=== PATIENT | female | born 1940 | race Caucasian/White ===

== ENCOUNTER → 2019-12-04 14:47 | Outpatient (CLI) | payer MEDICARE, OTHER, SELFPAY ==
--- NOTE | 2019-12-04 | DI.RAD.S_ITS ---
This blank DEXA report has been sent in error by the PACS system. The correct and complete report will be forthcoming in 1-2 days. Thank you for your patience and understanding. COMPARISON: None. Dictated by: Fredy Hodges M.D. on 12/04/2019 at 16:31 Approved by: Fredy Hodges M.D. on 12/04/2019 at 16:31
== END ==
PROVIDERS: Family Provider Physician Assistant; PCP Physician Assistant; Referring Provider Internal Medicine; Visit Provider Internal Medicine
DX: M85.851 Other specified disorders of bone density and structure, right thigh (principal); Z78.0 Asymptomatic menopausal state
CPT/HCPCS: 77080

== ENCOUNTER → 2019-12-08 16:54 | Outpatient (CLI) | payer MEDICARE, OTHER, SELFPAY ==
--- NOTE | 2019-12-08 16:58 | DI.MG.S_ITS ---
BILATERAL DIGITAL SCREENING MAMMOGRAM 3D/2D WITH CAD: 12/08/2019 CLINICAL: Routine screening. Family history of breast cancer. Comparison is made to exams dated: 02/18/2009 mammogram - [facility], 03/02/2003 mammogram, and 11/03/2001 mammogram - [facility]. The tissue of both breasts is predominantly fatty. Current study was also evaluated with a Computer Aided Detection (CAD) system. No significant masses, calcifications, or other findings are seen in either breast. There has been no significant interval change. IMPRESSION: NEGATIVE There is no mammographic evidence of malignancy. A 1 year screening mammogram is recommended. This exam was interpreted at Station ID: [id number]. NOTE: For mammograms, a report in lay terms will be sent to the patient. Approximately 15% of breast malignancies will not be visualized mammographically. In the management of a palpable breast mass, a negative mammogram must not discourage biopsy of a clinically suspicious lesion. Electronically Signed By: Fredy huddleston/smith:12/09/2019 08:20:56 letter sent: Normal Exam ACR BI-RADS Category 1: Negative [id number]
== END ==
PROVIDERS: Family Provider Physician Assistant; Referring Provider Internal Medicine; Visit Provider Internal Medicine
DX: Z12.31 Encounter for screening mammogram for malignant neoplasm of breast (principal); Z80.3 Family history of malignant neoplasm of breast
CPT/HCPCS: 77063; 77067

== ENCOUNTER → 2019-12-08 19:28 | Outpatient (ROUT) | payer MEDICARE, OTHER, SELFPAY ==
[2019-12-08 19:51] LABS: Aspartate Aminotransferase 36 IU/L (14-36); BUN Creatinine Ratio 21.1 (6-22); Blood Urea Nitrogen 15 mg/dL (7-17); Calcium 9.5 mg/dL (8.4-10.2); Carbon Dioxide 24 mmol/L (22-32); Chloride 104 mmol/L (98-107); Cholesterol 147 mg/dL (140-199); Estimated Glomerular Filt Rate > 60.0 mL/min (>60); Glucose 94 mg/dL (80-110); HDL Cholesterol 96 mg/dL (40-60); HEMOLYSIS < 15 (0-50); LDL Cholesterol Calculated 36 mg/dL (<100); Potassium 4.5 mmol/L (3.4-5.1); Sodium 136 mmol/L (137-145); Triglycerides 77 mg/dL (35-150)
[2019-12-08 19:52] LABS: Add Manual Diff / Slide Review NO; Basophils Absolute Auto 0 /uL (0-100); Basophils Percent Auto 0.6 % (0-2); Eosinophils Absolute Auto 100 /uL (0-450); Eosinophils Percent Auto 2.1 % (2-4); Hematocrit 37.2 % (36-46); Hemoglobin 12.5 g/dL (12.0-16.0); Lymphocytes Absolute Auto 1800 /uL (1100-4500); Lymphocytes Percent Auto 35.9 % (25-40); Mean Corpuscular HGB Conc 33.5 % (30-36); Mean Corpuscular Hemoglobin 32.6 PG (26-34); Mean Corpuscular Volume 97.4 fL (80-100); Monocytes Absolute Auto 400 /uL (0-900); Monocytes Percent Auto 8.6 % (3-14); Neutrophils Absolute Auto 2700 /uL (1500-7000); Neutrophils Percent Auto 52.8 % (50-75); Platelet Count 185 X10^3/uL (150-400); Red Blood Cell Count 3.82 X10^6/uL (4.0-5.2); Red Cell Distribution Width 12.7 % (11.6-14.8); White Blood Cell Count 5.1 X10^3/uL (4.5-11.0)
[2019-12-08 20:40] LABS: Vitamin B12 871 pg/mL (239-931)
== END ==
PROVIDERS: Family Provider Physician Assistant; Visit Provider Internal Medicine
DX: E78.2 Mixed hyperlipidemia (principal); E53.8 Deficiency of other specified B group vitamins
CPT/HCPCS: 80048; 80061; 82607; 84450; 85025

== ENCOUNTER → 2020-09-17 15:48 | Outpatient (CLI) | payer MEDICARE, OTHER, SELFPAY ==
--- NOTE | 2020-09-17 | DI.RAD.S_ITS ---
PROCEDURE: XR CHEST 2V INDICATIONS: Chronic Cough TECHNIQUE: 2 views of the chest were acquired. COMPARISON: [facility], , CHEST 2 VIEW, 08/13/2011, 16:52. FINDINGS: Surgical changes and devices: None. Lungs and pleura: No focal consolidation, pneumothorax, or pleural effusion. Mediastinum: Mediastinal contours are normal. Heart size is normal. Bones and chest wall: No suspicious bony abnormalities. Degenerative changes of the shoulders and spine. Stable ossification adjacent to the left shoulder likely represents cycle of remote trauma. There is mild serpentine curvature of the thoracolumbar spine. Soft tissues appear unremarkable. IMPRESSION: No evidence of an acute cardiopulmonary abnormality. Dictated by: Jitendra Norris D.O. on 09/17/2020 at 15:15 Approved by: Jitendra Norris D.O. on 09/17/2020 at 15:18
== END ==
PROVIDERS: Family Provider Physician Assistant; PCP Internal Medicine; Referring Provider Internal Medicine; Visit Provider Internal Medicine
DX: R05 Cough (principal)
CPT/HCPCS: 71046

== ENCOUNTER → 2020-10-14 18:49 | Outpatient (ROUT) | payer MEDICARE, OTHER, SELFPAY ==
[2020-10-14 19:07] LABS: Add Manual Diff / Slide Review NO; Basophils Absolute Auto 0 /uL (0-100); Basophils Percent Auto 0.8 % (0-2); Eosinophils Absolute Auto 0 /uL (0-450); Eosinophils Percent Auto 0.7 % (2-4); Hematocrit 38.4 % (36-46); Hemoglobin 12.8 g/dL (12.0-16.0); Lymphocytes Absolute Auto 2100 /uL (1100-4500); Lymphocytes Percent Auto 35.4 % (25-40); Mean Corpuscular HGB Conc 33.3 % (30-36); Mean Corpuscular Hemoglobin 33.1 PG (26-34); Mean Corpuscular Volume 99.5 fL (80-100); Monocytes Absolute Auto 500 /uL (0-900); Monocytes Percent Auto 8.8 % (3-14); Neutrophils Absolute Auto 3200 /uL (1500-7000); Neutrophils Percent Auto 54.3 % (50-75); Platelet Count 207 X10^3/uL (150-400); Red Blood Cell Count 3.85 X10^6/uL (4.0-5.2); Red Cell Distribution Width 13.1 % (11.6-14.8); White Blood Cell Count 5.8 X10^3/uL (4.5-11.0)
[2020-10-14 19:15] LABS: Aspartate Aminotransferase 34 IU/L (14-36); Blood Urea Nitrogen 16 mg/dL (7-17); Calcium 9.7 mg/dL (8.4-10.2); Carbon Dioxide 26 mmol/L (22-32); Chloride 105 mmol/L (98-107); Cholesterol 218 mg/dL (140-199); Estimated Glomerular Filt Rate > 60.0 mL/min (>60); Glucose 91 mg/dL (80-110); HEMOLYSIS < 15 (0-50); Potassium 4.5 mmol/L (3.4-5.1); Sodium 136 mmol/L (137-145); Triglycerides 97 mg/dL (35-150)
[2020-10-14 19:23] LABS: HDL Cholesterol 110 mg/dL (40-60); LDL Cholesterol Calculated 89 mg/dL (<100)
[2020-10-14 20:10] LABS: Vitamin B12 927 pg/mL (239-931)
== END ==
PROVIDERS: Family Provider Physician Assistant; PCP Internal Medicine; Visit Provider Internal Medicine
DX: E53.8 Deficiency of other specified B group vitamins (principal); M85.80 Other specified disorders of bone density and structure, unspecified site; E78.2 Mixed hyperlipidemia
CPT/HCPCS: 80048; 80061; 82607; 84450; 85025

== ENCOUNTER → 2021-10-12 12:12 | Outpatient (CLI) | payer MEDICARE, OTHER, SELFPAY ==
[2021-10-12 14:23] LABS: Hematocrit 36.2 % (36-46); Hemoglobin 12.4 g/dL (12.0-16.0); Mean Corpuscular HGB Conc 34.3 % (30-36); Mean Corpuscular Hemoglobin 32.7 PG (26-34); Mean Corpuscular Volume 95.2 fL (80-100); Platelet Count 185 X10^3/uL (150-400); Red Cell Distribution Width 13.5 % (11.6-14.8); White Blood Cell Count 5.4 X10^3/uL (4.5-11.0)
[2021-10-12 14:50] LABS: Alanine Aminotransferase 13 IU/L (<35); Albumin 4.2 g/dL (3.5-5.0); Albumin Globulin Ratio 1.6 (1.0-2.8); Alkaline Phosphatase 70 U/L (38-126); Aspartate Aminotransferase 29 IU/L (14-36); BUN Creatinine Ratio 15.2 (6-22); Bilirubin Total 0.7 mg/dL (0.2-1.3); Blood Urea Nitrogen 12 mg/dL (7-17); Calcium 8.9 mg/dL (8.4-10.2); Carbon Dioxide 25 mmol/L (22-32); Chloride 104 mmol/L (98-107); Cholesterol 223 mg/dL (140-199); Estimated Glomerular Filt Rate > 60 mL/min (>60); Globulin 2.7 g/dL (1.7-4.1); Glucose 88 mg/dL (80-110); HEMOLYSIS < 15 (0-50); Potassium 4.5 mmol/L (3.4-5.1); Sodium 136 mmol/L (137-145); Total Protein 6.9 g/dL (6.3-8.2); Triglycerides 88 mg/dL (35-150)
[2021-10-12 15:02] LABS: HDL Cholesterol 114 mg/dL (40-60); LDL Cholesterol Calculated 91 mg/dL (<100)
[2021-10-12 15:37] LABS: Vitamin B12 889 pg/mL (239-931)
== END ==
PROVIDERS: Family Provider Physician Assistant; PCP Internal Medicine; Referring Provider Internal Medicine; Visit Provider Internal Medicine
DX: E53.8 Deficiency of other specified B group vitamins (principal); E78.2 Mixed hyperlipidemia
CPT/HCPCS: 36415; 80053; 80061; 82607; 84443; 85027

== ENCOUNTER 2022-12-05 17:31 | Emergency (ER) | payer MEDICARE, OTHER, SELFPAY ==
[2022-12-05] VITALS (10 sets, daily range): BP systolic 143–198; BP diastolic 68–101; PULSE 67–74; RESP 14–20; TEMP 36.9; O2SAT 95–99; BMI 25.0
--- NOTE | 2022-12-05 | DI.CT.S_ITS ---
PROCEDURE: CT CERVICAL SPINE WO CON INDICATIONS: FALL HIT HEAD TECHNIQUE: Noncontrast 3 mm thick sections acquired from the skull base to the T4 level. Sagittal and coronal reformats were then constructed. For radiation dose reduction, the following was used: automated exposure control, adjustment of mA and/or kV according to patient size. COMPARISON: None. FINDINGS: Image quality: Excellent. Bones: The craniocervical junction is intact. Severe degenerative space loss and spurring at the atlantodental interval. No cervical vertebral body fractures or pathologic subluxation. There is degenerative subluxation on the right at the C1-2 lateral mass.. There is chronic appearing grade 1 anterolisthesis C4 on five with ankylosis of the facet joints at that level. Severe disc degeneration and endplate sclerosis at C5-6. Trace anterolisthesis C6-7. Soft tissues: Prevertebral soft tissues are normal in thickness. No paravertebral hematomas. No apical pneumothoraces. IMPRESSION: 1. No CT evidence of acute cervical spine trauma. 2. Degenerative disc, endplate, and facet joint changes, predominantly at the C5-6 level. Dictated by: Geetha Pickard M.D. on 12/05/2022 at 18:21 Approved by: Geetha Pickard M.D. on 12/05/2022 at 18:29
--- NOTE | 2022-12-05 17:45 | DI.CT.S_ITS ---
PROCEDURE: CT HEAD/BRAIN WO CON INDICATIONS: fall/hit head TECHNIQUE: Noncontrast 4.5 mm thick angled axial sections acquired from the foramen magnum to the vertex, with coronal and sagittal reformats. For radiation dose reduction, the following was used: automated exposure control, adjustment of mA and/or kV according to patient size. COMPARISON: None. FINDINGS: Image quality: Excellent. CSF spaces: Basal cisterns are patent. No extra-axial fluid collections. The ventricles are symmetric in size and shape. Brain: No intracranial bleeds or intraparenchymal masses. There is a small calcified dural mass arising from the right parietal vertex without significant underlying mass effect, measuring about 6 mm. There is cerebral volume loss for age, with resultant ventricular and sulcal prominence. There are periventricular and deep white matter chronic small vessel ischemic changes. There is intracranial internal carotid artery atherosclerosis. Skull and face: Calvarium and visualized facial bones appear intact, without suspicious lesions. Sinuses: Mucous retention cyst or polyp at the base of the left maxillary sinus. Visualized sinuses and mastoids are otherwise clear. IMPRESSION: 1. No CT evidence of acute intracranial trauma. 2. No significant soft tissue injury or underlying fracture. 3. Age-appropriate cerebral cortical volume loss and chronic microvascular ischemic changes. 4. Benign-appearing 6 mm right parietal meningioma. Dictated by: Geetha Pickard M.D. on 12/05/2022 at 18:17 Approved by: Geetha Pickard M.D. on 12/05/2022 at 18:21
--- NOTE | 2022-12-05 17:46 | DI.RAD.S_ITS ---
PROCEDURE: XR SHOULDER LT MIN 2V INDICATIONS: fall/pain TECHNIQUE: Three views of the shoulder were acquired. COMPARISON: None. FINDINGS: Bones: There are prominent degenerative changes in the glenohumeral joint including glenohumeral joint space loss and inferior spur formation. There is a dystrophic calcification posterior to the humeral head. There are no visible acute fractures, shoulder dislocation, or separation. The visible rib arcs appear intact. Soft tissues: No suspicious soft tissue calcifications. IMPRESSION: 1. Intact right shoulder. 2. Degenerative glenohumeral joint changes Dictated by: Geetha Pickard M.D. on 12/05/2022 at 19:03 Approved by: Geetha Pickard M.D. on 12/05/2022 at 19:05
--- NOTE | 2022-12-05 17:46 | DI.RAD.S_ITS ---
PROCEDURE: XR HIP W PEL IF DONE LT 2V INDICATIONS: fall/pain TECHNIQUE: AP pelvis with lateral view(s) of the left hip(s). COMPARISON: [facility], , HIPBILAT 3TO4V W PEL IF PERFD, 08/07/2016, 15:40. FINDINGS: Bones: No fractures or dislocations. Moderate asymmetric left hip joint degeneration including joint space loss, sclerosis, and spurring. Pelvic ring appears intact. No suspicious bony lesions. Soft tissues: The visualized bowel gas pattern is normal. No suspicious soft tissue calcifications. IMPRESSION: 1. No visible hip or pelvic fracture. 2. Moderate asymmetric left hip joint degeneration. Dictated by: Geetha Pickard M.D. on 12/05/2022 at 18:34 Approved by: Geetha Pickard M.D. on 12/05/2022 at 18:36
[2022-12-05] MEDS: TET,DIPH,PERTUSS(ACELL),VAC/PF 0.5 ML SYRINGE IM (18:55)
--- NOTE | 2022-12-05 19:08 | PC.NURSE ---
Wounds on forehead cleaned with CHG
--- NOTE | 2022-12-05 19:15 | ED_ITS ---
HPI - Fall General Chief Complaint: Fall Stated Complaint: GLF, left hip pain Time Seen by Provider: 12/05/22 19:01 Source: patient and EMS Mode of arrival: EMS History of Present Illness HPI Narrative: A 2-year-old female here for evaluation of injuries that you sustained with just states she was cleaning her house. States she tripped over rug that was rolled up on the floor. She did fall forward and hit her head. She also hit her left shoulder and has left hip pain. She did not lose consciousness. She is not on blood thinners. Sustained some abrasions to her left forehead. Was because she could not stand and put weight on her left hip was the reason that she contacted EMS to bring her in. Related Data Home Medications Medication Instructions Recorded Confirmed albuterol sulfate 90 mcg/actuation 2 puff inhalation Q4-6H PRN 10/12/21 03/05/22 aerosol inhaler (ProAir HFA) cetirizine 10 mg tablet 10 mg PO DAILY PRN 10/12/21 03/05/22 cholecalciferol (vitamin D3) 50 50 mcg PO DAILY 10/12/21 03/05/22 mcg (2,000 unit) capsule cyanocobalamin (vitamin B-12) 1,000 mcg PO DAILY 10/12/21 03/05/22 1,000 mcg capsule fluticasone propionate 50 1 spray intranasal DAILY 10/12/21 03/05/22 mcg/actuation nasal spray,suspension (Flonase Allergy Relief) omega 5-rsk-yvd-fish oil 1,000 mg 1 cap PO DAILY 10/12/21 03/05/22 (120 mg-180 mg) capsule (Fish Oil) vitamin E mixed 1,000 unit capsule 1,000 unit PO DAILY 10/12/21 03/05/22 Previous Rx's Medication Instructions Recorded amoxicillin 875 mg-potassium 1 tab PO BID #20 tabs 03/05/22 clavulanate 125 mg tablet fluticasone propionate 100 1 inh inhalation BID #60 ea 03/05/22 mcg/actuation blister powder for inhalation (Flovent Diskus) prednisone 10 mg tablet See Rx Instructions .Route 03/05/22 .COMPLEX #20 tabs Allergies Allergy/AdvReac Type Severity Reaction Status Date / Time No Known Drug Allergies Allergy Verified 10/12/21 10:41 Review of Systems Review of Systems ROS Unobtainable: All systems reviewed & are unremarkable except as noted in HPI and below Patient History Medical History Acute bacterial sinusitis Allergic rhinitis Asthma B12 deficiency History of colon cancer History of colon polyps Medicare annual wellness visit, initial Mixed hyperlipidemia Osteopenia Social History Smoking Status: Former smoker Smoking Status: Former smoker Substance Use Type: does not use Exam Initial Vital Signs Initial Vital Signs: Vital Signs Temperature 98.5 F 12/05/22 17:36 Pulse Rate 74 12/05/22 17:36 Respiratory Rate 16 12/05/22 17:36 Blood Pressure 198/91 H 12/05/22 17:36 Pulse Oximetry 99 12/05/22 17:36 Oxygen Delivery Method Room Air 12/05/22 17:36 Const General: cooperative, comfortable and No ill appearing HENMT Head: abrasion (Left forehead) Resp Effort & Inspection: normal respiratory effort Cardio Rate: regular rate GI Inspection: normal to inspection and non-distended Back/Spine/Pelvis Cervical Spine: cervical muscular tenderness and cervical spinal tenderness Skin Other: Abrasions to the left forehead Neuro General: patient alert, patient awake and moves all extremities Extrem Other: Patient does have tenderness to the left hemipelvis upper extremities unremarkable. Scores GCS Boissevain coma scale eye opening: Spontaneous Jorge coma scale verbal response: Orientated Jorge coma scale motor response: Obey commands Jorge coma scale total score: 15 Course Orders Ordered: ED Orders 12/05/22 17:45 CT head/brain wo con Stat 12/05/22 17:46 XR hip w pel if done LT 2V Stat XR shoulder LT min 2V Stat 12/05/22 19:42 CT pelvis wo con Stat Discontinued Medications Hydrocodone Bitart/Acetaminophen (Hydrocodone/Acet 5/325 Tablet) 1 tab PO NOW ONE Stop: 12/05/22 19:16 Last Admin: 12/05/22 19:38 Dose: 1 tab Documented By: LEANDER Hydrocodone Bitart/Acetaminophen (Hydrocodone/Acet 5/325 Prepack) 1 bottle MISC SEEINSTR ONE Stop: 12/05/22 21:28 Last Admin: 12/05/22 21:39 Dose: 1 bottle Documented By: WIN Bacitracin (Bacitracin Oint 0.9 Gm Pckt) 1 applic TOP NOW ONE Stop: 12/05/22 19:16 Last Admin: 12/05/22 19:38 Dose: 1 applic Documented By: LEANDER Diphtheria/Tetanus/Acell Pertussis (Tet,Diph,Pertuss(Acell),Vac/Pf 0.5 Ml Syringe) 0.5 ml IM .ONCE ONE Stop: 12/05/22 17:48 Last Admin: 12/05/22 18:55 Dose: 0.5 ml Documented By: AMV Vital Signs Vital signs: Vital Signs - 8 hr 12/05/22 17:36 12/05/22 17:39 12/05/22 17:39 Temperature 98.5 F Pulse Rate 74 74 Respiratory Rate 16 Blood Pressure 198/91 H 198/91 H Pulse Oximetry 99 98 Oxygen Delivery Method Room Air 12/05/22 17:43 12/05/22 17:43 12/05/22 18:13 Temperature Pulse Rate 72 72 Respiratory Rate Blood Pressure 179/81 H Pulse Oximetry 98 98 Oxygen Delivery Method 12/05/22 18:30 12/05/22 19:00 12/05/22 19:03 Temperature Pulse Rate 69 71 69 Respiratory Rate 14 Blood Pressure Pulse Oximetry 98 97 98 Oxygen Delivery Method Room Air 12/05/22 19:03 12/05/22 20:29 12/05/22 20:30 Temperature Pulse Rate 68 67 Respiratory Rate 20 20 Blood Pressure 187/77 H 159/101 H 146/79 H Pulse Oximetry 97 96 Oxygen Delivery Method Room Air 12/05/22 21:00 Temperature Pulse Rate 71 Respiratory Rate 20 Blood Pressure 143/68 H Pulse Oximetry 95 Oxygen Delivery Method Room Air MDM - Fall Imaging Data CT - cervical spine: Radiologist's Impression: PROCEDURE:? CT CERVICAL SPINE WO CON ? INDICATIONS:? FALL HIT HEAD ? TECHNIQUE:? Noncontrast 3 mm thick sections acquired from the skull base to the T4 level.? Sagittal and coronal reformats were then constructed.? For radiation dose reduction, the following was used:? automated exposure control, adjustment of mA and/or kV according to patient size.? ? COMPARISON:? None. ? FINDINGS:? Image quality:? Excellent.? ? Bones:? The craniocervical junction is intact.? Severe degenerative space loss and spurring at the atlantodental interval.? No cervical vertebral body fractures or pathologic subluxation.? There is degenerative subluxation on the right at the C1-2 lateral mass..? There is chronic appearing grade 1 anterolisthesis C4 on five with ankylosis of the facet joints at that level.? Severe disc degeneration and endplate sclerosis at C5-6.? Trace anterolisthesis C6-7. ? Soft tissues:? Prevertebral soft tissues are normal in thickness.? No paravertebral hematomas.? No apical pneumothoraces.? ? ? IMPRESSION:? ? 1. No CT evidence of acute cervical spine trauma.? ? 2. Degenerative disc, endplate, and facet joint changes, predominantly at the C5-[address] scan - head: Radiologist's Impression: PROCEDURE:? CT HEAD/BRAIN WO CON ? INDICATIONS:? fall/hit head ? TECHNIQUE:? Noncontrast 4.5 mm thick angled axial sections acquired from the foramen magnum to the vertex, with coronal and sagittal reformats.? For radiation dose reduction, the following was used:? automated exposure control, adjustment of mA and/or kV according to patient size.? ? COMPARISON:? None. ? FINDINGS:? Image quality:? Excellent.? ? CSF spaces:? Basal cisterns are patent.? No extra-axial fluid collections.? The ventricles are symmetric in size and shape.? ? Brain:? No intracranial bleeds or intraparenchymal masses.? There is a small calcified dural mass arising from the right parietal vertex without significant underlying mass effect, measuring about 6 mm. There is cerebral volume loss for age, with resultant ventricular and sulcal prominence.? There are periventricular and deep white matter chronic small vessel ischemic changes.? There is intracranial internal carotid artery atherosclerosis.? ? Skull and face:? Calvarium and visualized facial bones appear intact, without suspicious lesions.? ? Sinuses:? Mucous retention cyst or polyp at the base of the left maxillary sinus.? Visualized sinuses and mastoids are otherwise clear.? ? IMPRESSION:? ? 1. No CT evidence of acute intracranial trauma. ? 2. No significant soft tissue injury or underlying fracture.? ? 3. Age-appropriate cerebral cortical volume loss and chronic microvascular ischemic changes.? ? 4. Benign-appearing 6 mm right parietal meningioma.? CT pelvis: Radiologist's Impression: PROCEDURE:? CT PEL WO CON ? INDICATIONS:? Left hip pain after fall unable to walk ? TECHNIQUE:? Noncontrast 3 mm axial sections acquired through the bony pelvis, with coronal and sagittal reformatting.? ? COMPARISON:? [facility], [place], XR HIP W PEL IF DONE LT 2V, 12/05/2022, 17:46. ? FINDINGS:? Image quality:? Excellent.? ? Bones:? No definite fractures or dislocation.? Visualized osseous structures appear osteopenic limiting evaluation for nondisplaced fractures.? 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 Moderate degenerative disc disease and facet joint arthropathy noted within the visualized lower lumbar spine. ? Soft tissues:? No discrete hematoma collections.? Visualized musculature appears preserved.? No intraperitoneal free fluid within the visualized pelvis.? There is colonic diverticulosis. ? ? IMPRESSION:? ? 1. No definite fracture or dislocation. Extremity x-ray #1: Radiologist's Impression: PROCEDURE:? XR SHOULDER LT MIN 2V ? INDICATIONS:? fall/pain ? TECHNIQUE:? Three views of the shoulder were acquired.? ? COMPARISON:? None. ? FINDINGS:? ? Bones:? There are prominent degenerative changes in the glenohumeral joint including glenohumeral joint space loss and inferior spur formation.? There is a dystrophic calcification posterior to the humeral head.? There are no visible acute fractures, shoulder dislocation, or separation.? The visible rib arcs appear intact. ? Soft tissues:? No suspicious soft tissue calcifications.? ? IMPRESSION:? ? 1. Intact right shoulder. ? 2. Degenerative glenohumeral joint changes Extremity x-ray #2: Radiologist's Impression: PROCEDURE:? XR HIP W PEL IF DONE LT 2V ? INDICATIONS:? fall/pain ? TECHNIQUE:? AP pelvis with lateral view(s) of the left hip(s).? ? COMPARISON:? [facility], [place], HIPBILAT 3TO4V W PEL IF PERFD, 08/07/2016, 1 5:40. ? FINDINGS:? ? Bones:? No fractures or dislocations.? Moderate asymmetric left hip joint degeneration including joint space loss, sclerosis, and spurring.? Pelvic ring appears intact.? No suspicious bony lesions.? ? Soft tissues:? The visualized bowel gas pattern is normal.? No suspicious soft tissue calcifications.? ? ? IMPRESSION:? ? 1. No visible hip or pelvic fracture. ? 2. Moderate asymmetric left hip joint degeneration.? MDM Narrative Medical decision making narrative: This was clearly a mechanical fall per the patient's description of the event. The abrasions on her left forehead any no specific intervention here in the ER besides cleaning and topical antibiotic ointment. Her initial workup was unremarkable for any sort of fractures or dislocation. She could not stand with a walker at bedside because of pain in her left hip so a CT scan was ordered once again this did not show any signs of fractures or dislocation. She was able to stand with a walker after the pain medication at a chance to kick in. Will discharge patient home with return precautions. They have a walker at home that she can use. Both her and her expressed understanding and agreement with lab. Discharge Plan Departure Patient Disposition: Home Clinical Impression: Hip pain, Shoulder pain, Abrasion of forehead, Fall Instructions: How to Prevent Falls Activity Restrictions/Additional Instructions: You can put topical antibiotic ointment over the abrasions on your forehead. Your x-rays and CT scans today do not show any signs of any fractures. I suspect that tomorrow you are going to be very sore. You can take Tylenol/ibuprofen or the pain medication as needed for breakthrough pain. Return to the emergency department for new symptoms. Prescriptions: No Action vitamin E mixed 1,000 unit capsule 1,000 unit PO DAILY cholecalciferol (vitamin D3) 50 mcg (2,000 unit) capsule 50 mcg PO DAILY cyanocobalamin (vitamin B-12) 1,000 mcg capsule 1,000 mcg PO DAILY albuterol sulfate [ProAir HFA] 90 mcg/actuation HFA aerosol inhaler 2 puff inhalation Q4-6H PRN fluticasone propionate [Flonase Allergy Relief] 50 mcg/actuation spray,suspension 1 spray intranasal DAILY Rx Instructions: administer into each nostril cetirizine 10 mg tablet 10 mg PO DAILY PRN omega 7-jli-dtt-fish oil [Fish Oil] 1,000 mg (120 mg-180 mg) capsule 1 cap PO DAILY amoxicillin-pot clavulanate 875-125 mg tablet 1 tab PO BID Qty: 20 1RF prednisone 10 mg tablet See Rx Instructions .Route .COMPLEX Qty: 20 2RF Rx Instructions: 4 tablets daily for 2 days, then 3 tablets daily for 2 days, then 2 tablets daily for 2 days, then 1 tablet daily for 2 days then stop; Flovent Diskus 100 mcg/actuation blister with device 1 inh inhalation BID Qty: 60 11RF Referrals: Salvador Baca MD [Primary Care Provider] - Stand Alone Forms: Patient Portal/API
[2022-12-05] MEDS: BACITRACIN OINT 0.9 GM PCKT 1 APPLIC TOP (19:38)
[2022-12-05] MEDS: HYDROCODONE/ACET 5/325 TABLET 1 TAB PO (19:38)
--- NOTE | 2022-12-05 19:42 | DI.CT.S_ITS ---
PROCEDURE: CT PEL WO CON INDICATIONS: Left hip pain after fall unable to walk TECHNIQUE: Noncontrast 3 mm axial sections acquired through the bony pelvis, with coronal and sagittal reformatting. COMPARISON: [facility], [place], XR HIP W PEL IF DONE LT 2V, 12/05/2022, 17:46. FINDINGS: Image quality: Excellent. Bones: No definite fractures or dislocation. Visualized osseous structures appear osteopenic limiting evaluation for nondisplaced fractures. 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 Moderate degenerative disc disease and facet joint arthropathy noted within the visualized lower lumbar spine. Soft tissues: No discrete hematoma collections. Visualized musculature appears preserved. No intraperitoneal free fluid within the visualized pelvis. There is colonic diverticulosis. IMPRESSION: 1. No definite fracture or dislocation. Dictated by: Milton Monaco M.D. on 12/05/2022 at 20:48 Approved by: Milton Monaco M.D. on 12/05/2022 at 20:56
--- NOTE | 2022-12-05 20:29 | PC.NURSE ---
This RN resuming care of pt. Pt is resting supine in bed. Pt is A&Ox4 and reports that the pain medication has made the pain more tolerable. Spouse sitting at bedside.
--- NOTE | 2022-12-05 21:29 | PC.NURSE ---
Pt walked with walker out of the room with steady gait and able to bear weight on R leg. Pt denies dizziness while walking.
[2022-12-05] MEDS: HYDROCODONE/ACET 5/325 PREPACK 1 BOTTLE MISC (21:39)
== END 2022-12-05 21:41 | disposition home or self-care (01) ==
PROVIDERS: Emergency Provider Emergency Medicine; Family Provider Physician Assistant; PCP Internal Medicine
DX: M25.512 Pain in left shoulder (principal); M25.552 Pain in left hip; S09.90XA Unspecified injury of head, initial encounter; S00.81XA Abrasion of other part of head, initial encounter; W18.30XA Fall on same level, unspecified, initial encounter; Z23 Encounter for immunization
CPT/HCPCS: 70450; 72125; 72192; 73030; 73502; 90471; 99284; 90715

== ENCOUNTER → 2022-12-11 10:33 | Outpatient (CLI) | payer MEDICARE, OTHER, SELFPAY ==
[2022-12-11 11:51] LABS: Alanine Aminotransferase 18 IU/L (<35); Albumin 3.9 g/dL (3.5-5.0); Albumin Globulin Ratio 1.3 (1.0-2.8); Alkaline Phosphatase 66 U/L (38-126); Aspartate Aminotransferase 33 IU/L (14-36); BUN Creatinine Ratio 17.1 (6-22); Bilirubin Total 0.5 mg/dL (0.2-1.3); Blood Urea Nitrogen 14 mg/dL (7-17); Carbon Dioxide 26 mmol/L (22-32); Chloride 104 mmol/L (98-107); Cholesterol 207 mg/dL (140-199); Estimated Glomerular Filt Rate > 60 mL/min (>60); Globulin 2.9 g/dL (1.7-4.1); Glucose 91 mg/dL (80-110); HDL Cholesterol 76 mg/dL (40-60); HEMOLYSIS < 15 (0-50); LDL Cholesterol Calculated 104 mg/dL (<100); Potassium 4.7 mmol/L (3.4-5.1); Sodium 135 mmol/L (137-145); Total Protein 6.8 g/dL (6.3-8.2); Triglycerides 136 mg/dL (35-150)
== END ==
PROVIDERS: Family Provider Physician Assistant; PCP Internal Medicine; Referring Provider Internal Medicine; Visit Provider Internal Medicine
DX: E78.2 Mixed hyperlipidemia (principal)
CPT/HCPCS: 36415; 80053; 80061

== ENCOUNTER → 2022-12-27 14:55 | Outpatient (CLI) | payer MEDICARE, OTHER, SELFPAY ==
[2022-12-27 15:36] LABS: Influenza A - CEPHEID Flu A NEGATIVE (NEGATIVE); Influenza B - CEPHEID Flu B NEGATIVE (NEGATIVE); Respiratory Syncytial Virus Negative (Negative)
[2022-12-27 16:15] LABS: COVID-19 CEPHEID 4-PLEX PCR POSITIVE (Negative)
== END ==
PROVIDERS: Family Provider Physician Assistant; PCP Internal Medicine; Visit Provider Nurse Practitioner Family
DX: U07.1 COVID-19 (principal); R05.1 Acute cough; Z20.822 Contact with and (suspected) exposure to COVID-19
CPT/HCPCS: 0241U

== ENCOUNTER → 2023-01-14 09:40 | Outpatient (CLI) | payer MEDICARE, OTHER, SELFPAY ==
--- NOTE | 2023-01-14 09:42 | DI.RAD.S_ITS ---
PROCEDURE: FL UPPER GI SERIES INDICATIONS: dysphagia, chronic cough COMPARISON: None. FINDINGS: Unremarkable double contrast views of the esophagus. Mild esophageal dysmotility present with tertiary contractions at the lower esophagus and retropulsion of barium. No high-grade esophageal stricture visualized. A 13 mm barium tablet passed promptly through the esophagus and gastroesophageal junction. A small sliding hiatal hernia is intermittently visualized. Gastroesophageal reflux was not observed during the exam, including with provocative maneuvers. IMPRESSION: 1. Small sliding hiatal hernia. 2. No high-grade esophageal stricture identified. Dictated by: Fredy Prater M.D. on 01/14/2023 at 11:10 Approved by: Fredy Prater M.D. on 01/14/2023 at 11:15
--- NOTE | 2023-01-18 09:26 | DI.RAD.S_ITS ---
Bone Density Report Name: JUSTIN BAILEY Age: 82 Sex: Female Ethnicity: White Date of : 1940 Indication: osteopenia; Referring Provider: ERINN MARLEY Study: Bone densitometry was performed. Exam Date: January 18, 2023 Accession number: [id number] Bone Density: Region BMD T-score Z-score Classification AP Spine(L1, L2, L3) 0.946 -0.7 2.1 Normal Femoral Neck (Left) 0.647 -1.8 0.7 Osteopenia Total Hip (Left) 0.724 -1.8 0.5 Osteopenia Femoral Neck (Right) 0.594 -2.3 0.2 Osteopenia Total Hip (Right) 0.659 -2.3 0.0 Osteopenia Total Hip Mean 0.691 -2.1 0.3 Osteopenia World Health Organization criteria for BMD impression classify patients as: Normal (T-score at or above -1.0), Osteopenia (T-score between -1.0 and -2.5), or Osteoporosis (T-score at or below -2.5). 10-year Fracture Risk: FRAX not reported because: Premenopausal woman Previous Exams: -- Region Exam Age BMD T-score BMD Change BMD Change Date g/cm2 vs Baseline vs Previous -- AP Spine (L1-L3) 01/18/2023 82 0.946 -0.7 -0.152 (-13.8%)# -2.965 (-75.8%)* 01/14/2023 82 3.911 26.3 2.813 (256.2%)# 2.848 (268.0%)# 12/04/2019 79 1.063 0.4 -0.035 (-3.2%)* -0.035 (-3.2%)* 03/15/2010 70 1.098 0.7 Total Hip(Left) 01/18/2023 82 0.724 -1.8 -0.094 (-11.5%)# -0.002 (-0.3%) 01/14/2023 82 0.726 -1.8 -0.092 (-11.2%)# -0.018 (-2.4%)# 12/04/2019 79 0.744 -1.6 -0.074 (-9.0%)* -0.074 (-9.0%)* 03/15/2010 70 0.818 -1.0 Total Hip(Right) 01/18/2023 82 0.659 -2.3 -0.150 (-18.5%)# 0.011 (1.7%) 01/14/2023 82 0.648 -2.4 -0.160 (-19.8%)# -0.079 (-10.9%)# 12/04/2019 79 0.727 -1.8 -0.081 (-10.1%)* -0.081 (-10.1%)* 03/15/2010 70 0.809 -1.1 -- *Denotes significance at 95% confidence level, LSC for AP Spine = 0.022 g/cm2, LSC for Total Hip = 0.027 g/cm2 Rate of change results reflect vertebral levels common to all scans # Denotes dissimilar scan types or analysis methods Impression: The patient's bone mass is within expected range for age, gender and ethnicity. The BMD for the AP Spine (L1-L3) decreased, changing by -75.8% since the last DXA exam. Discussion: BONE DENSITY IS WITHIN EXPECTED LIMITS FOR AGE, SEX AND RACE. Bone density is within expected limits for age, sex and race at all sites measured. The patient should follow a healthful lifestyle (good nutrition with adequate calcium and vitamin D, and appropriate weight-bearing exercise). Follow-Up: Consider repeating this study in 2 years to reassess this patient's status, or sooner if there is some new clinical indication. Reported by: MARILEE OTT M.D on 01/18/2023 10:59:00 AM.
== END ==
PROVIDERS: Family Provider Physician Assistant; PCP Internal Medicine; Referring Provider Internal Medicine; Visit Provider Internal Medicine
DX: K44.9 Diaphragmatic hernia without obstruction or gangrene (principal); R13.10 Dysphagia, unspecified; R05.3 Chronic cough
CPT/HCPCS: 74240

== ENCOUNTER → 2023-01-18 13:12 | Outpatient (CLI) | payer MEDICARE, OTHER, SELFPAY ==
--- NOTE | 2023-01-18 10:39 | DI.RAD.S_ITS ---
Bone Density Report Name: JUSTIN BAILEY Age: 82 Sex: Female Ethnicity: White Date of : 1940 Indication: osteopenia; Referring Provider: ERINN MARLEY Study: Bone densitometry was performed. Exam Date: January 18, 2023 Accession number: [id number] Bone Density: Region BMD T-score Z-score Classification AP Spine(L1, L2, L3) 0.946 -0.7 2.1 Normal Femoral Neck (Left) 0.647 -1.8 0.7 Osteopenia Total Hip (Left) 0.724 -1.8 0.5 Osteopenia Femoral Neck (Right) 0.594 -2.3 0.2 Osteopenia Total Hip (Right) 0.659 -2.3 0.0 Osteopenia Total Hip Mean 0.691 -2.1 0.3 Osteopenia World Health Organization criteria for BMD impression classify patients as: Normal (T-score at or above -1.0), Osteopenia (T-score between -1.0 and -2.5), or Osteoporosis (T-score at or below -2.5). 10-year Fracture Risk: FRAX not reported because: Premenopausal woman Previous Exams: -- Region Exam Age BMD T-score BMD Change BMD Change Date g/cm2 vs Baseline vs Previous -- AP Spine (L1-L3) 01/18/2023 82 0.946 -0.7 -0.152 (-13.8%)# -2.965 (-75.8%)* 01/14/2023 82 3.911 26.3 2.813 (256.2%)# 2.848 (268.0%)# 12/04/2019 79 1.063 0.4 -0.035 (-3.2%)* -0.035 (-3.2%)* 03/15/2010 70 1.098 0.7 Total Hip(Left) 01/18/2023 82 0.724 -1.8 -0.094 (-11.5%)# -0.002 (-0.3%) 01/14/2023 82 0.726 -1.8 -0.092 (-11.2%)# -0.018 (-2.4%)# 12/04/2019 79 0.744 -1.6 -0.074 (-9.0%)* -0.074 (-9.0%)* 03/15/2010 70 0.818 -1.0 Total Hip(Right) 01/18/2023 82 0.659 -2.3 -0.150 (-18.5%)# 0.011 (1.7%) 01/14/2023 82 0.648 -2.4 -0.160 (-19.8%)# -0.079 (-10.9%)# 12/04/2019 79 0.727 -1.8 -0.081 (-10.1%)* -0.081 (-10.1%)* 03/15/2010 70 0.809 -1.1 -- *Denotes significance at 95% confidence level, LSC for AP Spine = 0.022 g/cm2, LSC for Total Hip = 0.027 g/cm2 Rate of change results reflect vertebral levels common to all scans # Denotes dissimilar scan types or analysis methods Impression: The patient's bone mass is within expected range for age, gender and ethnicity. The BMD for the AP Spine (L1-L3) decreased, changing by -75.8% since the last DXA exam. Discussion: BONE DENSITY IS WITHIN EXPECTED LIMITS FOR AGE, SEX AND RACE. Bone density is within expected limits for age, sex and race at all sites measured. The patient should follow a healthful lifestyle (good nutrition with adequate calcium and vitamin D, and appropriate weight-bearing exercise). Follow-Up: Consider repeating this study in 2 years to reassess this patient's status, or sooner if there is some new clinical indication. Reported by: MARILEE OTT M.D on 01/18/2023 3:29:00 PM.
== END ==
PROVIDERS: Family Provider Physician Assistant; PCP Internal Medicine; Referring Provider Internal Medicine; Visit Provider Internal Medicine
DX: M81.0 Age-related osteoporosis without current pathological fracture (principal); M85.88 Other specified disorders of bone density and structure, other site
CPT/HCPCS: 77080

== ENCOUNTER → 2023-06-20 17:20 | Outpatient (CLI) | payer MEDICARE, OTHER, SELFPAY ==
--- NOTE | 2023-06-20 | DI.MRI.S_ITS ---
PROCEDURE: MR LUMBAR SPINE WO CON INDICATIONS: Spinal stenosis, lumbar region with neurogenic cla TECHNIQUE: Noncontrast sagittal T1 spin echo and T2 fast echo, sagittal STIR, and T2 fast spin echo through the lumbar spine. In cases with scoliosis, additional coronal T2 fast spin echo may be performed. COMPARISON: [facility], RG, XR L-SPINE 2-3V, 02/07/2005, 14:45. FINDINGS: Image quality: Excellent. Alignment and Curvature: There is minimal retrolisthesis seen at T12-L1 and L1-L2, with moderate retrolisthesis seen at L2-L3 and L3-L4. There is mild grade 1 anterolisthesis seen at L4-L5. Mild retrolisthesis is seen at L5-S1. Mild levoconvex scoliotic curvature is noted. Bone Marrow: Marrow is of normal overall signal. No acute vertebral body compression fractures. Spinal Cord: Conus medullaris terminates at the L1 level. Visualized cord demonstrates normal signal and size. Paraspinous Soft Tissues: No paravertebral masses. T11-T12: At least moderate loss of disc height and disc signal can be seen. Reactive marrow endplate changes are seen anteriorly, which are hypointense on T1-weighted imaging and hyperintense on T2 weighted imaging, which is most consistent with edema (Modic type I changes). Mild generalized disc bulge is seen. Mild bilateral neural foraminal narrowing is seen. Mild central canal narrowing is seen. T12-L1: At least moderate loss of disc height and disc signal can be seen. Reactive marrow endplate changes are seen, which are hyperintense on T1-weighted and T2-weighted imaging and most consistent with fatty metaplasia (Modic type II changes). Mild generalized disc bulge is seen. Mild facet joint hypertrophy is seen. Moderate bilateral neural foraminal narrowing can be seen, right worse than left. Minimal central canal narrowing is seen. L1-L2: Moderate loss of disc height is seen. Loss of disc signal is seen. Moderate generalized disc bulge is seen. Mild facet joint hypertrophy is seen. There is moderate left-sided and moderate to severe right-sided neural foraminal narrowing. Moderate central canal narrowing is seen. L2-L3: At least moderate loss of disc height and disc signal can be seen posteriorly. Reactive marrow endplate changes are seen, which are hyperintense on T1-weighted and T2-weighted imaging and most consistent with fatty metaplasia (Modic type II changes). Moderate generalized disc bulge is seen. Moderate facet joint hypertrophy is seen. There is moderate to severe bilateral neural foraminal narrowing, left worse than right. Moderate central canal narrowing is seen. L3-L4: Moderate loss of disc height is seen. Loss of disc signal is seen. Reactive marrow endplate changes are seen, which are hyperintense on T1-weighted and T2-weighted imaging and most consistent with fatty metaplasia (Modic type II changes). Moderate generalized disc bulge is seen. There is a superimposed central disc protrusion. At least moderate facet hypertrophy can be seen. Moderate to severe bilateral neural foraminal narrowing can be seen, right worse than left. There is a degree of compression seen upon the exiting nerve roots. Moderate to severe central canal narrowing can be seen, as on series 6, image 22. L4-L5: The disc height is well-preserved. Loss of disc signal is seen at this level. Moderate generalized disc bulge is seen. There is a superimposed central disc protrusion. At least moderate facet hypertrophy can be seen. Associated hypertrophy of the ligamentum flavum can be seen. There is a degree of compression seen upon the exiting nerve roots. Severe central canal narrowing is seen, as on series 6, image 26. L5-S1: At least moderate loss of disc height and disc signal can be seen. Reactive marrow endplate changes are seen which are hypointense on T1-weighted imaging and hyperintense on T2 weighted imaging, which is most consistent with edema (Modic type I changes). At least moderate disc bulge is seen, which is eccentric to the left. There is a central disc protrusion. Moderate facet joint hypertrophy is seen. There is moderate to severe bilateral neural foraminal narrowing seen, with an associated a degree of compression seen upon the exiting nerve roots. At least moderate central canal narrowing is seen, as on series 6, image 30. IMPRESSION: Multiple levels of significant lumbar spine degenerative change can be seen, which are overall worst at the L4-L5 level. Dictated by: Calvin Harp M.D. on 06/20/2023 at 17:57 Approved by: Calvin Harp M.D. on 06/20/2023 at 18:03
== END ==
PROVIDERS: Family Provider Physician Assistant; PCP Internal Medicine; Referring Provider Physical Medicine & Rehabilitation Pain Medicine; Visit Provider Physical Medicine & Rehabilitation Pain Medicine
DX: M48.062 Spinal stenosis, lumbar region with neurogenic claudication (principal); M47.816 Spondylosis without myelopathy or radiculopathy, lumbar region; M47.817 Spondylosis without myelopathy or radiculopathy, lumbosacral region
CPT/HCPCS: 72148

== ENCOUNTER → 2023-12-18 13:40 | Outpatient (CLI) | payer MEDICARE, OTHER, SELFPAY ==
--- NOTE | 2023-12-18 13:41 | DI.RAD.S_ITS ---
PROCEDURE: XR CHEST 2V INDICATIONS: Cough TECHNIQUE: 2 views of the chest were acquired. COMPARISON: [facility], CR, XR CHEST 2V, 09/17/2020, 15:49. FINDINGS: Surgical changes and devices: None. Lungs and pleura: Lungs are clear. No pleural effusions or pneumothorax. Mediastinum: Mediastinal contours are normal. Heart size is normal. Bones and chest wall: No suspicious bony abnormalities. Soft tissues appear unremarkable. IMPRESSION: No acute pulmonary process. Dictated by: Lorena Lockwood M.D. on 12/18/2023 at 21:33 Approved by: Lorena Lockwood M.D. on 12/18/2023 at 21:34
== END ==
PROVIDERS: Family Provider Physician Assistant; PCP Internal Medicine; Referring Provider Nurse Practitioner Family; Visit Provider Nurse Practitioner Family
DX: R05.9 Cough, unspecified (principal)
CPT/HCPCS: 71046

== ENCOUNTER → 2024-01-07 14:50 | Outpatient (CLI) | payer MEDICARE, OTHER, SELFPAY ==
[2024-01-07 15:14] LABS: Hematocrit 36.1 % (36-46); Hemoglobin 12.4 g/dL (12.0-16.0); Mean Corpuscular HGB Conc 34.3 % (30-36); Mean Corpuscular Hemoglobin 32.4 PG (26-34); Mean Corpuscular Volume 94.5 fL (80-100); Platelet Count 279 X10^3/uL (150-400); Red Blood Cell Count 3.82 X10^6/uL (4.0-5.2); Red Cell Distribution Width 12.8 % (11.6-14.8); White Blood Cell Count 8.6 X10^3/uL (4.5-11.0)
[2024-01-07 15:34] LABS: Alanine Aminotransferase 19 IU/L (<35); Albumin 3.8 g/dL (3.5-5.0); Albumin Globulin Ratio 1.5 (1.0-2.8); Alkaline Phosphatase 78 U/L (38-126); Aspartate Aminotransferase 31 IU/L (14-36); BUN Creatinine Ratio 15.2 (6-22); Bilirubin Total 0.7 mg/dL (0.2-1.3); Blood Urea Nitrogen 12 mg/dL (7-17); Calcium 9.2 mg/dL (8.4-10.2); Carbon Dioxide 22 mmol/L (22-32); Chloride 104 mmol/L (98-107); Cholesterol 146 mg/dL (140-199); Estimated Glomerular Filt Rate > 60 mL/min (>60); Globulin 2.6 g/dL (1.7-4.1); Glucose 94 mg/dL (80-110); HDL Cholesterol 69 mg/dL (40-60); HEMOLYSIS < 15 (0-50); LDL Cholesterol Calculated 58 mg/dL (<100); Potassium 4.5 mmol/L (3.4-5.1); Sodium 136 mmol/L (137-145); Total Protein 6.4 g/dL (6.3-8.2); Triglycerides 96 mg/dL (35-150)
== END ==
PROVIDERS: Family Provider Physician Assistant; PCP Internal Medicine; Referring Provider Internal Medicine; Visit Provider Internal Medicine
DX: E78.2 Mixed hyperlipidemia (principal); J45.909 Unspecified asthma, uncomplicated; Z85.038 Personal history of other malignant neoplasm of large intestine
CPT/HCPCS: 36415; 80053; 80061; 85027

== ENCOUNTER → 2024-01-11 11:14 | Outpatient (CLI) | payer MEDICARE, OTHER, SELFPAY ==
[2024-01-11 12:06] LABS: BUN Creatinine Ratio 17.1 (6-22); Blood Urea Nitrogen 13 mg/dL (7-17); Calcium 9.3 mg/dL (8.4-10.2); Carbon Dioxide 23 mmol/L (22-32); Chloride 104 mmol/L (98-107); Estimated Glomerular Filt Rate > 60 mL/min (>60); Glucose 100 mg/dL (80-110); HEMOLYSIS < 15 (0-50); Potassium 4.6 mmol/L (3.4-5.1); Sodium 135 mmol/L (137-145)
== END ==
PROVIDERS: Family Provider Physician Assistant; PCP Internal Medicine; Referring Provider Surgery; Visit Provider Surgery
DX: Z85.038 Personal history of other malignant neoplasm of large intestine (principal)
CPT/HCPCS: 36415; 80048; 82378

== ENCOUNTER → 2024-01-13 10:04 | Outpatient (CLI) | payer MEDICARE, OTHER, SELFPAY ==
--- NOTE | 2024-01-13 10:05 | DI.CT.S_ITS ---
PROCEDURE: CT CHEST ABD PEL W CON INDICATIONS: surviellence colon cancer TECHNIQUE: After the administration of intravenous contrast, 5 mm thick sections acquired from the lung apices to the symphysis. 5 mm coronal and sagittal reformats were performed, with additional 7 mm MIP reformats through the lungs. For radiation dose reduction, the following was used: automated exposure control, adjustment of mA and/or kV according to patient size. COMPARISON: [facility], CT, CT PEL WO CON, 12/05/2022, 19:50. FINDINGS: Image quality: Diagnostic Lungs and pleura: Scattered scarring and atelectasis No overtly suspicious pulmonary nodules, airspace disease, or pleural effusions Mediastinum, heart, and esophagus: Small hiatal hernia and epiphrenic diverticulum. No pathologic lymph nodes by size criteria. The heart size is at the upper limit of normal. Chest wall and thyroid: No discrete nodules. Chest wall is unremarkable Liver: Unremarkable. No solid lesion Gallbladder and biliary system: No pathologic dilation. Gallbladder is unremarkable Pancreas: No ductal dilation Spleen: Nonenlarged Adrenals: No discrete nodules Kidneys: No solid mass or hydronephrosis Vessels and lymph nodes: The main portal vein is patent. No abdominal aortic aneurysm. No pathologic lymph nodes by size criteria. Bowel and peritoneum: No evidence of small bowel obstruction. Colonic diverticula are seen. Right colonic suture lines. No pathologic ascites. Body wall: Postsurgical changes Pelvis: Bladder is unremarkable. Reproductive organs are unremarkable on limited CT evaluation Bones: Degenerative changes, no acute or suspicious osseous finding. IMPRESSION: Right colonic suture lines. No evidence of active metastatic disease identified. Other incidental findings above. Dictated by: Wally Maldonado M.D. on 01/24/2024 at 13:25 Approved by: Wally Maldonado M.D. on 01/24/2024 at 13:31
== END ==
LOC: CT 10:05
PROVIDERS: Family Provider Physician Assistant; PCP Internal Medicine; Referring Provider Internal Medicine; Visit Provider Internal Medicine
DX: Z85.038 Personal history of other malignant neoplasm of large intestine (principal)
CPT/HCPCS: 71260; 74177; Q9967

== ENCOUNTER 2024-02-07 11:57 | Day surgery (SDC) | payer MEDICARE, OTHER, SELFPAY ==
[2024-02-07] MEDS: LACTATED RINGERS 1,000 ML 150 ML IV (12:30)
[2024-02-07 12:31] VITALS: BP 134/76; PULSE 77; RESP 16; TEMP 36.1; O2SAT 96
--- NOTE | 2024-02-07 12:55 | PM.PREOP ---
Pre-operative Note Interval Note History & Physical reviewed/Exam performed by Physician: Yes Changes to H&P: No
[2024-02-07 13:22] VITALS: BP 97/53; PULSE 71; RESP 16; TEMP 36.6; O2SAT 95
[2024-02-07 13:26] VITALS: BP 99/58; PULSE 69; RESP 16; O2SAT 94
--- NOTE | 2024-02-07 13:26 | P.OP.COLON_ITS ---
Operative Date/Time/Diagnoses Date of procedure: 02/07/24 Time of procedure: 13:26 Pre-op diagnosis: History of colon cancer Procedure & Clinicians Study performed: Screening colonoscopy Same procedure as scheduled: Yes Indications: 84-year-old woman status post right hemicolectomy for stage 1 colon cancer 2020 here for screening colonoscopy Surgeon: Gregory Nguyen Procedure Notes Procedure in detail: The history and physical was performed/updated and the patient is ASA class is 2. The procedure was discussed in detail with the patient. Potential risks complications including infection, bleeding, missed diagnosis, perforation, need for surgery, and were explained. Their questions were answered and informed consent was obtained. Patient was brought to the procedure room and placed standard monitoring equipment. The patient's vital signs were monitored continuously throughout the entire procedure. Prior to starting time-out was performed. The patient was placed in the left lateral recumbent position. Procedural sedation was administered by anesthesia. Examination began with a thorough inspection of the perianal area there was no evidence of fissures, fistulae, external hemorrhoids or cutaneous malignancy. The colonoscopy scope was then placed into the anal canal and was advanced forward. We reached the ileocolonic anastomosis which was normal and then The scope was then slowly withdrawn examining colon thoroughly in all directions, irrigating it of any residual stool. The scope was retroflexed within the rectum The patient tolerated the procedure well. They will be discharged once criteria are met. The prep was of good/excellent quality. The withdrawl time was 7 minutes. FINDINGS * Normal intestinal anastomosis * No polyps or masses * Diverticulosis of distal colon Specimen(s): none sent Impression: Normal colonoscopy status post colectomy Post-procedure Plan for aftercare: No need for further colonoscopy Disposition: same day surgery
[2024-02-07 13:31] VITALS: BP 115/67; PULSE 71; RESP 20; O2SAT 97
[2024-02-07 13:36] VITALS: BP 121/78; PULSE 72; RESP 16; O2SAT 96
[2024-02-07 13:41] VITALS: BP 125/76; PULSE 68; RESP 16; O2SAT 95
== END 2024-02-07 14:06 | disposition home or self-care (01) ==
PROVIDERS: Family Provider Physician Assistant; PCP Internal Medicine; Referring Provider Surgery; Visit Provider Surgery
PROC: 0DJD8ZZ Inspection of Lower Intestinal Tract, Via Natural or Artificial Opening Endoscopic (ICD-10-PCS; CPT 45378; principal; 2024-02-07 13:00)
DX: Z12.11 Encounter for screening for malignant neoplasm of colon (principal); Z85.038 Personal history of other malignant neoplasm of large intestine; K57.30 Diverticulosis of large intestine without perforation or abscess without bleeding
CPT/HCPCS: G0105

== ENCOUNTER → 2024-04-22 10:49 | Outpatient (CLI) | payer MEDICARE, OTHER, SELFPAY ==
[2024-04-22 11:47] LABS: Influenza A - CEPHEID Flu A NEGATIVE (NEGATIVE); Influenza B - CEPHEID Flu B NEGATIVE (NEGATIVE); Respiratory Syncytial Virus POSITIVE (Negative)
[2024-04-22 11:48] LABS: COVID-19 CEPHEID 4-PLEX PCR Negative (Negative)
== END ==
PROVIDERS: Family Provider Physician Assistant; PCP Internal Medicine; Visit Provider Nurse Practitioner Family
DX: R05.1 Acute cough (principal)
CPT/HCPCS: 0241U

== ENCOUNTER → 2024-04-22 11:05 | Outpatient (CLI) | payer MEDICARE, OTHER, SELFPAY ==
--- NOTE | 2024-04-22 11:06 | DI.RAD.S_ITS ---
PROCEDURE: XR CHEST 2V INDICATIONS: Cough TECHNIQUE: 2 views of the chest were acquired. COMPARISON: [facility], CR, XR CHEST 2V, 12/18/2023, 13:52. FINDINGS: Surgical changes and devices: None. Lungs and pleura: Lungs are clear. No pleural effusions or pneumothorax. Mediastinum: Mediastinal contours are normal. Heart size is normal. Bones and chest wall: No suspicious bony abnormalities. Soft tissues appear unremarkable. IMPRESSION: No acute cardiopulmonary pathology. Dictated by: Garrick Burgos M.D. on 04/22/2024 at 11:41 Approved by: Garrick Burgso M.D. on 04/22/2024 at 11:41
== END ==
PROVIDERS: Family Provider Physician Assistant; PCP Internal Medicine; Referring Provider Nurse Practitioner Family; Visit Provider Nurse Practitioner Family
DX: R05.1 Acute cough (principal)
CPT/HCPCS: 0241U; 71046

== ENCOUNTER → 2025-02-16 15:20 | Outpatient (CLI) | payer MEDICARE, OTHER, SELFPAY ==
--- NOTE | 2025-02-16 15:23 | DI.CT.S_ITS ---
PROCEDURE: CT SINUS SCREEN WO CON INDICATIONS: chronic sinus drainage, postnasal drip, cough, phlegm TECHNIQUE: Noncontrast 3.0 mm axial images acquired from the frontal sinuses to the mid- sella, with coronal and sagittal reformats. For radiation dose reduction, the following was used: automated exposure control, adjustment of mA and/or kV according to patient size. COMPARISON: None. FINDINGS: Image quality: Excellent. Maxillary Sinuses: No bony remodeling or destruction. Mild mucosal thickening can be seen involving the inferior maxillary sinuses. Ethmoid Air Cells: No bony remodeling or destruction. Sinuses are clear. Sphenoid Sinuses: No bony remodeling or destruction. Sinuses are clear. Frontal Sinuses: No bony remodeling or destruction. Sinuses are clear. Ostiomeatal Complexes: The ostiomeatal complexes are patent, yet they are constitutionally narrowed, with bilateral Cory cells. Miscellaneous: Visualized intra-orbital contents are normal. There are bilateral jackie bullosa. No nasal septal deviation. 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 This is not considered to be pathologic in a woman of this age. IMPRESSION: No significant active paranasal sinus disease can be seen, although there is mild mucosal thickening involving the inferior maxillary sinuses. The ostiomeatal complexes are patent, yet they are constitutionally narrowed, with bilateral Cory cells. Dictated by: Calvin Harp M.D. on 02/16/2025 at 16:17 Approved by: Calvin Harp M.D. on 02/16/2025 at 16:19
== END ==
LOC: CT 15:22
PROVIDERS: PCP Internal Medicine; Referring Provider Internal Medicine; Visit Provider Internal Medicine
DX: J32.8 Other chronic sinusitis (principal); J34.89 Other specified disorders of nose and nasal sinuses; J30.9 Allergic rhinitis, unspecified; R09.82 Postnasal drip; R05.8 Other specified cough
CPT/HCPCS: 70486

== ENCOUNTER → 2025-03-15 15:16 | Outpatient (CLI) | payer MEDICARE, OTHER, SELFPAY | PROVIDERS: PCP Internal Medicine; Referring Provider Internal Medicine; Visit Provider Internal Medicine | DX: J32.9 Chronic sinusitis, unspecified (principal) | CPT/HCPCS: 87070; 87205 ==

== ENCOUNTER → 2025-03-24 16:02 | Outpatient (CLI) | payer MEDICARE, OTHER, SELFPAY | PROVIDERS: PCP Internal Medicine; Referring Provider Internal Medicine; Visit Provider Internal Medicine | DX: I08.3 Combined rheumatic disorders of mitral, aortic and tricuspid valves (principal); R01.1 Cardiac murmur, unspecified | CPT/HCPCS: 93306 ==